=== PATIENT | male | born 1965 | race Caucasian/White ===

== ENCOUNTER 2022-03-13 16:45 | Emergency (ER) | payer SELFPAY ==
--- NOTE | 2022-03-13 16:49 | ED.MALEGU ---
HPI - Male Genitourinary General Chief complaint: Urogenital-Male Stated complaint: Can't Urinate Time Seen by Provider: 03/13/22 16:49 Source: patient and RN notes reviewed History of Present Illness HPI Narrative: Patient is a 56-year-old male who presents the urgent care with complaints of inability to urinate since Sunday. Patient states that when he does he is having severe lower abdominal pain. Patient also reports of some intermittent lower back pain. Denies of any history of kidney stones or urinary tract infections. Patient is not taking anything [id number] for his symptoms. No other acute complaints. No acute distress noted. Patient aware of the plan of care. Some parts of this dictation were generated by voice recognition software and may contain typographical and/or grammatical inaccuracies. Related Data Home Medications Medication Instructions Recorded Confirmed atorvastatin 20 mg tablet 20 mg PO DAILY 03/13/22 03/13/22 lisinopril 10 mg tablet 10 mg PO DAILY 03/13/22 03/13/22 Allergies Allergy/AdvReac Type Severity Reaction Status Date / Time No Known Allergies Allergy Verified 03/13/22 17:17 Review of Systems Review of Systems: CONSTITUTIONAL: Denies fever, chills, or sweats. EYES: Denies visual changes, redness, or discharge. ENT: Denies rhinorrhea, congestion, sore throat, or otalgia. CARDIOVASCULAR: Denies chest pain, palpitations, or edema. RESPIRATORY: Denies cough or dyspnea. GASTROINTESTINAL: Reports of the lower right abdominal pain GENITOURINARY: Reports of inability to urinate SKIN: Denies rash or itching. MUSCULOSKELETAL: Reports of intermittent low back pain NEUROLOGIC: Denies headache, numbness, or weakness. All other systems reviewed are negative, except as documented in HPI. PMFSH Comments At the time of my signature, I reviewed and agree with the nursing past medical, surgical, social, and family history. There is no relevant family history pertinent to the patient complaint. Exam Narrative: GENERAL: This is a well-nourished, well-developed patient, in no apparent distress. HEAD: normocephalic, atraumatic. EYES: PERRL. Sclera clear/white. Vision is grossly intact. EARS: External ears normal NOSE: External nose normal with no obvious nasal discharge, nares without redness, no rhinorrhea. THROAT: Mucous membranes moist NECK: Neck supple CARDIOVASCULAR: Tachycardic RESPIRATORY: Clear to auscultation. Breath sounds equal bilaterally. No wheezes, rales, or rhonchi. GASTROINTESTINAL: Abdomen soft, moderate right lower abdominal tenderness, moderate suprapubic tenderness nondistended. Bowel sounds are active. guarding. SKIN: warm, intact with no suspicious lesions or rash, good texture and turgor. NEURO: awake, alert, and oriented to person, place and time. There were no obvious focal neurologic abnormalities. EXTREMITIES: No clubbing, cyanosis, or edema. No joint tenderness, effusion, or edema noted. No calf tenderness. Negative Homans sign bilaterally. BACK: No flank tenderness. Course Course Level of Care: Express Care Visit Vital Signs Vital signs: Vital Signs Temperature 101.9 F H 03/13/22 16:55 Pulse Rate 139 H 03/13/22 16:55 Respiratory Rate 18 03/13/22 16:55 Blood Pressure 126/78 03/13/22 16:55 Pulse Oximetry 97 03/13/22 16:55 Oxygen Delivery Room Air 03/13/22 16:55 Temperature 101.9 F H 03/13/22 16:55 Pulse Rate 139 H 03/13/22 16:55 Respiratory Rate 18 03/13/22 16:55 Blood Pressure 126/78 03/13/22 16:55 Pulse Oximetry 97 03/13/22 16:55 Oxygen Delivery Room Air 03/13/22 16:55 Reviewed Transfer Transfered to: [facility] Transportation: Other (Private car) Transfer rationale: Inability to urinate, fever, abdominal pain, tachycardia Accepting physician: Dr. Martin MDM - Male Genitourinary MDM Narrative Medical decision making narrative: Reviewed lab results with the patient. He is aware that he w
[2022-03-13 16:55] VITALS: BP 126/78; PULSE 139; RESP 18; TEMP 38.8; O2SAT 97
== END 2022-03-13 17:12 | disposition short-term general hospital (02) ==
PROVIDERS: Emergency Provider Nurse Practitioner Family; PCP Internal Medicine
DX: R33.9 Retention of urine, unspecified (principal); I10 Essential (primary) hypertension
CPT/HCPCS: 81003; 99212; G0463